=== PATIENT | male | born 1980 | race Caucasian/White ===

== ENCOUNTER 2023-06-22 04:25 | Emergency (ER) | payer SELFPAY ==
[~2023-06-22] VITALS: Ht 172.7 cm; Wt 80.7 kg
[2023-06-22 04:41] VITALS: BP 117/60; PULSE 90; RESP 18; TEMP 98.2; O2SAT 98
[2023-06-22] MEDS ORDERED: HYDROcodone/APAP 5/325 MG 1 TAB TAB PO ONE (05:25)
[2023-06-22] MEDS ORDERED: ACET-8905 PO (05:29)
[2023-06-22 05:55] VITALS: BP 117/60; PULSE 90; RESP 18; TEMP 98.2; O2SAT 98
== END 2023-06-22 05:55 | disposition home or self-care (01) ==
LOC: MED 04:25
DX: S52.352A Displaced comminuted fracture of shaft of radius, left arm, initial encounter for closed fracture (principal); W18.30XA Fall on same level, unspecified, initial encounter; Y93.89 Activity, other specified; Y92.89 Other specified places as the place of occurrence of the external cause; Y99.8 Other external cause status
CPT/HCPCS: 29125; 73090; 73110; 99284; Q0092

== ENCOUNTER 2023-06-29 19:15 | Emergency (ER) | payer OTHER ==
[~2023-06-29] VITALS: Ht 162.6 cm; Wt 78.5 kg
[~2023-06-29 19:15] MED LIST: ACET-8905 PO
[2023-06-29 20:47] VITALS: BP 119/71; PULSE 80; RESP 80; TEMP 97.9; O2SAT 99
[2023-06-29] MEDS ORDERED: IBUP-2213 PO (23:35)
[2023-06-30 00:20] VITALS: BP 119/71; PULSE 80; RESP 80; TEMP 97.9; O2SAT 99
== END 2023-06-30 00:20 | disposition home or self-care (01) ==
LOC: MED 19:15
DX: S01.01XA Laceration without foreign body of scalp, initial encounter (principal); F17.200 Nicotine dependence, unspecified, uncomplicated; V49.88XA Car occupant (driver) (passenger) injured in other specified transport accidents, initial encounter; Y93.89 Activity, other specified; Y92.89 Other specified places as the place of occurrence of the external cause; Y99.8 Other external cause status
CPT/HCPCS: 12001; 99282